=== PATIENT | female | born 1995 | race Two or more races ===

== ENCOUNTER 2017-04-21 11:00 | Emergency (ER) | payer OTHER ==
[2017-04-21 11:11] VITALS: RESP 18; O2SAT 97
--- NOTE | 2017-04-21 12:14 | EDPHY ---
H & P Time Seen by Provider: 04/21/17 11:21 HPI/ROS: CHIEF COMPLAINT: Sore throat, cough HISTORY OF PRESENT ILLNESS: 22-year-old female presents to the emergency department with sore throat, cough and diffuse myalgias. Symptoms began 3 days ago. No known ill contacts. No recent travel. She has some discomfort to the anterior aspect of her chest. No difficulty breathing. No abdominal pain or vomiting. No vomiting or diarrhea. Unknown fevers or chills. No rash. No headache. REVIEW OF SYSTEMS: Constitutional: No fever, no chills. Eyes: No double or blurry vision. ENT: sore throat. Respiratory: Cough. No shortness of breath Cardiac: No chest pain. Gastrointestinal: No abdominal pain, vomiting or diarrhea. Genitourinary: No dysuria. Musculoskeletal: No neck or back pain. Skin: No rashes. Neurological: No headache. Past Medical/Surgical History: Negative Social History: Single Smoking Status: Never smoked Physical Exam: General Appearance: Alert, no distress. Afebrile and nontoxic-appearing. Eyes: Pupils equal and round. Extraocular motions are all intact. ENT: Mouth: Mucous membranes moist. Mild posterior pharyngeal injection. No exudate. Respiratory: No wheezing, rhonchi, or rales, lungs are clear to auscultation. Cardiovascular: Regular rate and rhythm. Gastrointestinal: Abdomen is soft and nontender, no masses, no rebound or guarding, bowel sounds normal. Neurological: Alert and oriented x 3, cranial nerves II through XII grossly intact Skin: Warm and dry, no rashes. Musculoskeletal: Nontender to palpate along the cervical, thoracic or lumbar spine. Neck is supple. No nuchal rigidity. Extremities: Full range of motion and no peripheral edema. Psychiatric: Patient is oriented X 3, there is no agitation. Constitutional: Initial Vital Signs Temperature (C) 37.8 C 04/21/17 11:08 Heart Rate 94 04/21/17 11:08 Respiratory Rate 18 04/21/17 11:08 Blood Pressure 117/83 H 04/21/17 11:08 O2 Sat (%) 97 04/21/17 11:08 O2 Delivery Mode Room Air Allergies/Adverse Reactions: No Known Allergies Allergy (Unverified 04/21/17 11:08) Home Medications: Medication Instructions Recorded Oseltamivir Phosphate [Tamiflu] 75 mg PO BID #10 cap 04/21/17 Medical Decision Making ED Course/Re-evaluation: 22-year-old female presents to the emergency department with sore throat and cough. The nurse had already ordered strep and flu on the patient. Rapid strep test was negative. Patient was positive for influenza A. The patient requested Tamiflu. She understands that this may not be helpful. She understands that antibiotics are not indicated. She is not vomiting. Her vital signs are stable. I do not think IV fluids are indicated he. Differential Diagnosis: Including but not limited to strep pharyngitis, mononucleosis, a viral upper respiratory infection, influenza, bronchitis, pneumonia - Data Points Laboratory Results: 04/21/17 04/21/17 Unknown 11:20 Nasal Influenza A PCR FLU A DETECTED (NEGATIVE) Nasal Influenza B PCR NEGATIVE FOR FLU B (NEGATIVE) Group A Strep Screen NEGATIVE (NEGATIVE) Group A Strep DNA NEGATIVE (NEGATIVE) Departure - Departure Disposition: Home, Routine, Self-Care Clinical Impression: Influenza A Condition: Good Instructions: Influenza (ED) Additional Instructions: Adult Pain & Fever Control: We recommend Acetaminophen (Tylenol) and Ibuprofen (Motrin,Advil) for pain and fever control. When fever is high or pain severe, both drugs can be used at the same time, but at different intervals. Please note the time differences. Your dose is: Acetaminophen 1000mg every 4 to 6 hours Ibuprofen 600mg every 8 hours with food Note: do not take Acetaminophen with Hydrocodone (Vicodin, Lortab) or Oycodone (Percocet). These medications also contain Acetaminophen. No more than 3000mg of Acetaminophen should be taken in 24 hours (for an adult). Referrals: Margarito Maza MD [Medical Doctor] - As per Instructions (Primary care provider coil connector) Prescriptions: Oseltamivir Phosphate [Tamiflu] 75 mg PO BID #10 cap
[2017-04-21 12:46] VITALS: BP 112/84; PULSE 88; TEMP 99.7
== END 2017-04-21 13:44 | disposition home or self-care (01) ==
DX: J10.1 Influenza due to other identified influenza virus with other respiratory manifestations (principal)